=== PATIENT | male | born 1960 | race Two or more races ===

== ENCOUNTER 2017-07-10 10:50 | Outpatient (CLI) | payer BC ==
--- NOTE | 2017-07-10 11:39 | Diagnostic Imaging Report ---
Clinical Indication: Evaluation of abnormality seen on recent chest radiograph Technique: Spiral acquisitions obtained through the chest. No IV contrast utilized, due to history of severe contrast allergy. Multiplanar reconstructions generated. Total dose length product 712 mGycm. CTDIvol(s) 20 mGy. Dose reduction achieved using automated exposure control Comparison: Chest radiograph 07/07/2017 Findings:Some scarring is seen in the lingula adjacent to the cardiac apex. This, in combination with some prominent pericardial fat, likely accounts for the abnormalities described on recent chest radiograph. Linear scarring is also seen in the posterior medial left lower lobe. A 3 mm irregular opacity adjacent to the major fissure on the left is also consistent with an area of scarring. The lungs and pleural spaces are otherwise clear. No infiltrates, effusions, masses, or nodules. The heart size is normal. There is no pericardial effusion. There is a moderate-sized sliding-type hiatal hernia. No mediastinal or hilar mass or adenopathy. The thyroid is unremarkable except for some peripheral calcifications in the upper pole of the right. No axillary or chest wall mass or adenopathy. The bones demonstrate mild degenerative spondylosis changes. The the included upper abdominal anatomy is remarkable for a nonobstructive 2 mm calculus in a right upper pole renal calyx Impression: Lingular scarring and prominent pericardial fat account for the abnormality in the periphery of the right hemithorax described on recent chest radiograph. No evidence of mass or infiltrate 3 mm focus of scarring in the left lower lobe adjacent to the major fissure incidentally noted as well as other linear scarring at the left lung base Moderate size sliding-type hiatal hernia Nonobstructive right upper pole 2 mm renal calyceal calculus incidentally noted Degenerative spondylosis Findings discussed by phone with Dr. Juarez at the time of interpretation The CT scanner at [facility] is accredited by the [employer] and the scans are performed using protocols designed to limit radiation exposure to as low as reasonably achievable to attain images of sufficient resolution adequate for diagnostic evaluation.
[2017-07-12] MEDS ORDERED: PROPRANOLOL HCL10 MG ORAL (10:36)
[2017-07-12] MEDS ORDERED: SINGULAIR10 MG ORAL (10:36)
[2017-07-12] MEDS ORDERED: ATORVASTATIN CA40 MG ORAL (10:36)
[2017-07-12] MEDS ORDERED: ZETIA10 MG ORAL (10:36)
[2017-07-12] MEDS ORDERED: TAMSULOSIN HCL0.4 MG ORAL (10:36)
[2017-07-12] MEDS ORDERED: TEMAZEPAM15 MG ORAL (10:36)
[2017-07-12] MEDS ORDERED: ATRIPLA TABLET1 EAC1 ORAL (10:36)
[2017-07-12] MEDS ORDERED: MELATONIN10 M2 ORAL (10:36)
[2017-07-12] MEDS ORDERED: NEURONTIN600 MG ORAL (10:36)
[2017-07-12] MEDS ORDERED: PROAIR HFA8.5 GM INH (10:37)
[2017-07-12] MEDS ORDERED: ADVAIR 250-501 EACH INH (10:37)
== END 2017-07-10 12:50 | disposition home or self-care (01) ==
LOC: CAT 10:50
DX: J98.4 Other disorders of lung (principal); M47.9 Spondylosis, unspecified; N20.0 Calculus of kidney; K44.9 Diaphragmatic hernia without obstruction or gangrene
CPT/HCPCS: 71250

== ENCOUNTER 2017-07-13 05:49 | Day surgery (SDC) | payer BC ==
--- NOTE | 2017-07-07 16:51 | Diagnostic Imaging Report ---
Indication: COUGH Technique: One view of the chest Comparison: none Findings: There is a moderate to large hiatal hernia. Equivocal triangular opacity seen in the lateral left lower lung, just lateral to the cardiac apex. Lungs and pleural spaces otherwise clear. The heart size is normal. Impression: Questionable lateral opacity, versus artifact. Recommend further evaluation with chest CT Otherwise clear lungs Hiatal hernia Findings discussed by phone with Dr. Juarez at the time of interpretation
[2017-07-13] VITALS (12 sets, daily range): BP systolic 125–180; BP diastolic 87–110
[~2017-07-13] VITALS: Ht 175.3 cm; Wt 76.2 kg
[~2017-07-13 05:49] MED LIST: ADVAIR 250-501 EACH INH; ATORVASTATIN CA40 MG ORAL; ATRIPLA TABLET1 EAC1 ORAL; MELATONIN10 M2 ORAL; NEURONTIN600 MG ORAL; PROAIR HFA8.5 GM INH; PROPRANOLOL HCL10 MG ORAL; SINGULAIR10 MG ORAL; TAMSULOSIN HCL0.4 MG ORAL; TEMAZEPAM15 MG ORAL; ZETIA10 MG ORAL
[2017-07-13] MEDS ORDERED: Bupivacaine 0.75% 30ml vial INJ ONE (07:07)
[2017-07-13] MEDS ORDERED: Hydrogen Peroxide 473ml Bottle TOPIC ONE (07:07)
--- NOTE | 2017-07-13 07:19 | Pre-Procedure Note/Attestation ---
Pre-Procedure Note/Attestation Complete Prior to Procedure Procedure Narrative: left leg varicose vein stripping and ligation Indications for Procedure Pre-Operative Diagnosis: left leg severe superficial varicosities Attestation I attest that I discussed the nature of the procedure; its benefits; risks and complications; and alternatives (and the risks and benefits of such alternatives ), prior to the procedure, with the patient (or the patient's legal security systems sales representative). I attest that, if there was a reasonable possibility of needing a blood transfusion, the patient (or the patient's legal security systems sales representative) was given the [facility] standardized written summary, pursuant to the [place] Blood Safety Act ([place] Health and Safety Code # 1645, as amended). I attest that I re-evaluated the patient just prior to the surgery and that there has been no change in the patient's H&P, except as documented below: JEYSON BURGOS Jul 13, 2017 07:19
--- NOTE | 2017-07-13 07:19 | Pre-Procedure Note/Attestation ---
Pre-Procedure Note/Attestation Complete Prior to Procedure Procedure Narrative: left leg varicose vein stripping and ligation Indications for Procedure Pre-Operative Diagnosis: left leg severe superficial varicosities Attestation I attest that I discussed the nature of the procedure; its benefits; risks and complications; and alternatives (and the risks and benefits of such alternatives ), prior to the procedure, with the patient (or the patient's legal underwriting service representative). I attest that, if there was a reasonable possibility of needing a blood transfusion, the patient (or the patient's legal underwriting service representative) was given the [facility] standardized written summary, pursuant to the [place] Blood Safety Act ([place] Health and Safety Code # 1645, as amended). I attest that I re-evaluated the patient just prior to the surgery and that there has been no change in the patient's H&P, except as documented below: JEYSON BURGOS Jul 13, 2017 07:19
--- NOTE | 2017-07-13 07:19 | Pre-Procedure Note/Attestation ---
Pre-Procedure Note/Attestation Complete Prior to Procedure Procedure Narrative: left leg varicose vein stripping and ligation Indications for Procedure Pre-Operative Diagnosis: left leg severe superficial varicosities Attestation I attest that I discussed the nature of the procedure; its benefits; risks and complications; and alternatives (and the risks and benefits of such alternatives ), prior to the procedure, with the patient (or the patient's legal reimbursement representative). I attest that, if there was a reasonable possibility of needing a blood transfusion, the patient (or the patient's legal reimbursement representative) was given the [facility] standardized written summary, pursuant to the [place] Blood Safety Act ([place] Health and Safety Code # 1645, as amended). I attest that I re-evaluated the patient just prior to the surgery and that there has been no change in the patient's H&P, except as documented below: JEYSON BURGOS Jul 13, 2017 07:19
[2017-07-13] MEDS ORDERED: Midazolam 2mg/2ml Inj ONE (07:30)
[2017-07-13] MEDS ORDERED: LR 1000ml ONE (07:30)
[2017-07-13] MEDS ORDERED: NS Irrig 1000ml ONE (07:30)
[2017-07-13] MEDS ORDERED: Propofol 200mg/20ml IV ONE (07:30)
[2017-07-13] MEDS ORDERED: fentaNYL 100 mcg/2 mL IV ONE (07:30)
[2017-07-13] MEDS ORDERED: Sterile Water Irrig 1000ml IRRIG ONE (07:30)
[2017-07-13] MEDS ORDERED: LR 1000ml 1,000 ML IVLG SCH (08:37)
--- NOTE | 2017-07-13 08:42 | Anethesia Preoperative Eval ---
Anesthesia Pre-op PMH/ROS General Date of Evaluation: Jul 13, 2017 Time of Evaluation: 07:30 Anesthesiologist: STEPHANIE ASA Score: ASA 2 Mallampati Score Class I : Soft palate, uvula, fauces, pillars visible Class II: Soft palate, uvula, fauces visible Class III: Soft palate, base of uvula visible Class IV: Only hard plate visible Mallampati Classification: Class II Surgeon: AUBREY Diagnosis: Left Leg Saphenus Vein Phlebitis Surgical Procedure: Stripping Left Leg Vein Anesthesia History: none Allergies: Uncoded Allergies: IODINE (Allergy, Severe, 07/12/17) ANAPHYLACTIC SHOCK SHELL (Allergy, Severe, 07/12/17) ANAPHYLACTIC SHOCK Medications: see eMAR Past Medical History Cardiovascular: Reports: HTN Anesthesia Pre-op Phys. Exam Physician Exam Last Vital Signs Date Time Temp Pulse Resp B/P (MAP) Pulse Ox O2 Delivery O2 Flow Rate FiO2 07/13/17 06:24 97.8 56 19 125/89 98 Room Air Constitutional: NAD Neurologic: CN 2-12 intact Cardiovascular: RRR Respiratory: CTA Gastrointestinal: S/NT/ND Airway Exam Mallampati Score: Class II ROM: full Teeth: intact Anesthesia Pre-op A/P Risk Assessment & Plan Plan: GA Pre-Antibiotics Drug: ancef Given Within 1 Hr of Incision: Yes Time Given: 07:45 Sp Edward M.D. Jul 13, 2017 08:42
[2017-07-13] MEDS ORDERED: DiphenhydrAMINE 50mg/ml Inj IVP PRN (08:45)
[2017-07-13] MEDS ORDERED: Hydromorphone 0.5mg/0.5ml inj IVP PRN (08:45)
[2017-07-13] MEDS ORDERED: Midazolam 2mg/2ml Inj IVP PRN (08:45)
[2017-07-13] MEDS ORDERED: fentaNYL 100 mcg/2 mL IV PRN (08:45)
[2017-07-13] MEDS ORDERED: Metoclopramide 10mg/2ml Inj IVP PRN (08:45)
[2017-07-13] MEDS ORDERED: Ketorolac 30mg Inj IV PRN (08:45)
--- NOTE | 2017-07-13 08:48 | Immediate Post-Op Evaluation ---
Immediate Post-Op Evalulation Immediate Post-Op Evalulation Procedure: Stripping Left Leg ein Date of Evaluation: Jul 13, 2017 Time of Evaluation: 07:30 IV Fluids: 1000 Blood Products: 0 Estimated Blood Loss: 0 Urinary Output: 0 Blood Pressure Systolic: 140 Blood Pressure Diastolic: 123 Pulse Rate: 87 Respiratory Rate: 16 O2 Sat by Pulse Oximetry: 99 Temperature (Fahrenheit): 98 Pain Score (1-10): 0 Nausea: No Vomiting: No Patient Status: awake, reacts, patent, extubated Hydration Status: adequate Drug: Ancef Given Within 1 Hr of Incision: Yes Time Given: 07:45 Sp Edward M.D. Jul 13, 2017 08:48
--- NOTE | 2017-07-13 08:51 | 48 Hour Post Anesthesia Eval ---
Post Anesthesia Evaluation Procedure: Stripping Left Leg ein Date of Evaluation: Jul 15, 2017 Time of Evaluation: 08:00 Blood Pressure Systolic: 140 0: 105 Pulse Rate: 82 Respiratory Rate: 12 Temperature (Fahrenheit): 97 O2 Sat by Pulse Oximetry: 99 Airway: patent Nausea: No Vomiting: No Hydration Status: adequate Mental Status/LOC: patient returned to baseline Post-Anesthesia Complications: none Follow-up care needed: patient intructions given Sp Edward M.D. Jul 13, 2017 08:51
[2017-07-13] MEDS ORDERED: Acetaminophen (Non formulary) 100 ML IV ONE (09:00)
--- NOTE | 2017-07-13 09:40 | Brief Operative Note ---
Immediate Post Operative Note Operative Note Pre-op Diagnosis: left leg severe superficial varicosities Procedure: leftleg saphenous vein stripping and ligation Post-op Diagnosis: same as pre-op Surgeon: marcus Anesthesiologist: salomón Anesthesia: general Specimen: yes Complications: none Condition: stable Fluids: lr Estimated Blood Loss: minimal Implant(s) used?: No JEYSON BURGOS Jul 13, 2017 09:40
[2017-07-13] MEDS ORDERED: Meperidine 50mg/ml Inj(FOR RIGORS ONLY) ONE (09:53)
[2017-07-13] MEDS ORDERED: Meperidine 50mg/ml Inj(FOR RIGORS ONLY) IVP ONE (10:00)
--- NOTE | 2017-07-13 14:16 | Operative Note - Dictated ---
DATE OF OPERATION: 07/13/2017 SURGEON: Sree Juarez M.D. ARMATURE AND ROTOR WINDER: None. ANESTHESIOLOGIST: Dr. Sp Catalan. ANESTHESIA: General. PREOPERATIVE DIAGNOSIS: Left leg severe varicosities with venous insufficiency. POSTOPERATIVE DIAGNOSIS: Left leg severe varicosities with venous insufficiency. OPERATION PERFORMED: Left leg saphenous vein stripping and ligation with ligation of deep preference vessels. FINDINGS AND INDICATIONS: The patient is a 56-year-old, very pleasant, male with a history of progressively increasing multiple left leg varicosities all the way from the thigh down to the foot, most pronounced over the pretibial area, medial calf and ankle regions and the gastrocnemius region. For this reason, the patient came to see me as well as some edema of the lower leg with prolonged standing. A peripheral venous profile revealed normal deep system and multiple superficial varicosities with incompetent greater saphenous vein. After explaining to the patient in detail the indications, risks, benefits, possible complications, possible hematoma, possible need for further surgery in the future, some scarring of course, and the fact that I would be retiring in two weeks and one of my associates will be available should any further care be necessary. He understood all of these and consented for me to do the operation. At surgery indeed if any large veins are found, extensive removal of multiple large veins was done. The procedure was done uneventfully as described with multiple varicosities removed. DESCRIPTION OF PROCEDURE: With the patient lying in the supine position on the operating table, under general anesthesia with the entire left leg and groin regions prepped and draped in usual sterile fashion with Betadine, and after a complete timeout was done, an upper third of the thigh incision was made below the groin crease, subcutaneous tissues divided. The greater saphenous vein was identified and a couple of tributaries ligated. The vein was ligated proximally with #0 silk sutures x2, and then the ankle was approached through a transverse incision above the medial malleolus, subcutaneous tissues divided, the greater saphenous vein was identified and ligated distally with 2-0 chromic material after isolating it. A small venotomy was made just above the ligature through, which the venous stripper was passed to the groin and traction was used to remove the vein in its entirety to the upper thigh. Pressure was used for hemostasis for approximately 10 minutes. The multiple other tributaries which had been marked with the patient standing prior to the operation were then individually stripped by making small transverse incisions overlying them, and then blunt and sharp dissection used to mobilize them and remove them by stripping them in the entirety. The deep perforating vessels were ligated with 3-0 silk sutures, hemostasis was excellent at the end of the procedure again applying pressure for about 10 minutes. The wounds were all closed with 3-0 Vicryl subcutaneous and 4-0 Vicryl subcuticular sutures and Steri-Strips. A sterile dressing with 4 x 4s, Kerlix roll, and a large Jonathan bandage were placed. The patient tolerated the procedure well. Estimated blood loss Was Less than 150 mL. Sponge and needle counts were correct. He went to the recovery room in stable condition. Sree Juarez M.D. DR: LUISANA JOB#: [id number] CC: CARLINE
[2017-07-13] MEDS ORDERED: Tylenol #3 tab (300mg/30mg) ORAL PRN (16:01)
[2017-07-13] MEDS ORDERED: HYDROmorphone 1mg/ml Carpuject SUBQ PRN (16:01)
== END 2017-07-13 12:15 | disposition home or self-care (01) ==
LOC: SUR 05:49
DX: I83.892 Varicose veins of left lower extremity with other complications (principal); I10 Essential (primary) hypertension; K21.9 Gastro-esophageal reflux disease without esophagitis; F41.9 Anxiety disorder, unspecified; J30.9 Allergic rhinitis, unspecified; E78.2 Mixed hyperlipidemia; J45.909 Unspecified asthma, uncomplicated; G47.00 Insomnia, unspecified; E29.1 Testicular hypofunction; E55.9 Vitamin D deficiency, unspecified; Z91.041 Radiographic dye allergy status; Z91.013 Allergy to seafood; Z90.89 Acquired absence of other organs; Z82.49 Family history of ischemic heart disease and other diseases of the circulatory system
CPT/HCPCS: 37700; 71020; J0690; J1170; J1885; J2175; J2250; J2704; J3010; J7120; 94003; 94150

== ENCOUNTER 2017-09-07 10:44 | Outpatient (CLI) | payer BC ==
--- NOTE | 2017-09-07 12:59 | Diagnostic Imaging Report ---
Indication: . Tract infection, hematuria Technique: Grayscale and duplex images of the kidneys, retroperitoneum, and bladder were obtained. Comparison: Findings: Right kidney measures 10.1 cm in length. Left kidney measures 11.1 cm in length. Both kidneys demonstrate normal echogenicity. No hydronephrosis. No focal abnormality. Normal inferior vena cava. Bladder is normal. Impression: negative.
== END 2017-09-07 12:44 | disposition home or self-care (01) ==
LOC: ULS 10:44
DX: R31.9 Hematuria, unspecified (principal)
CPT/HCPCS: 76775